=== PATIENT | female | born 2000 | race Caucasian/White ===

== ENCOUNTER 2020-08-23 18:34 | Inpatient (IN) | payer OTHER ==
[2020-08-23] MEDS ORDERED: Ondansetron PF 4 MG/2 ML Vial ONE (20:00)
[2020-08-23] MEDS ORDERED: Morphine 4 MG/ML VIAL ONE (20:00)
[2020-08-23] MEDS ORDERED: Boostrix 0.5 ML (Tdap) VIAL ONE (20:01)
[2020-08-23] MEDS ORDERED: Ketorolac Tromethamine 15 MG/ML VIAL ONE (20:01)
[2020-08-23 20:15] LABS: #Basophils 0.1 10x3/uL (0.0-0.2); #Neutrophils 8.9 10x3/uL (1.5-8.4); %Basophils 0.6 % (0.0-2.0); %Eosinophils 0.2 % (0.0-6.0); %Lymphocytes 17.1 % (18.0-47.0); %Neutrophils 73.5 % (40.0-75.0); Hemoglobin 13.6 g/dL (12.0-15.5); Mean Corpuscular Hemoglobin 29.1 pg (27.0-33.0); Mean Platelet Volume 11.5 fl (7.4-10.4); Platelet Count 263 10x3/uL (150-450); RBC Distribution Width 12.3 % (11.5-14.5); Red Blood Cell (RBC) Count 4.67 10x6/uL (3.90-5.03); White Blood Cell (WBC) Count 12.1 10x3/uL (3.5-10.5)
[2020-08-23 20:28] LABS: ALT (SGPT) 10 U/L (8-55); AST (SGOT) 14 U/L (5-34); Albumin 4.4 g/dL (3.5-5.0); Alkaline Phosphatase 63 U/L (40-110); Anion Gap 15 mmol/L (10-20); BUN (Urea Nitrogen) 11 mg/dL (7.0-18.7); Bilirubin, Total 0.4 mg/dL (0.2-1.2); Calc. Creatinine Clearance 0 mL/min (70-130); Calcium 9.5 mg/dL (7.8-10.44); Carbon Dioxide 26 mmol/L (22-29); Chloride 102 mmol/L (98-107); Globulin 3.2 g/dL (2.4-3.5); Glucose 95 mg/dL (70-105); Potassium 4.4 mmol/L (3.5-5.1); Protein, Total 7.6 g/dL (6.0-8.3); Sodium 139 mmol/L (136-145)
[2020-08-23] MEDS ORDERED: Morphine 4 MG/ML VIAL SLOW IVP PRN (21:21)
[2020-08-23] MEDS ORDERED: Ondansetron ODT 4 MG TAB PO PRN (21:21)
[2020-08-23] MEDS ORDERED: Ondansetron PF 4 MG/2 ML Vial IVP PRN (21:21)
[2020-08-23] MEDS ORDERED: Acetaminophen 325 MG TAB PO PRN (21:21)
[2020-08-23] MEDS ORDERED: Ampicillin/Sulbactam 1.5 GM VIAL ONE (21:26)
[2020-08-23] MEDS ORDERED: Vancomycin HCl 500 MG in Sodium Chloride 0.9% 100 ML IVPB SCH (21:30)
[2020-08-23] MEDS ORDERED: Vancomycin HCl 500 MG VIAL ONE (21:50)
[2020-08-23] MEDS ORDERED: Ampicillin/Sulbactam 3 GM VIAL ONE (21:59)
[2020-08-23] MEDS ORDERED: Piperacillin/Tazobactam 3.375 GM in Sodium Chloride 0.9% 100 ML IVPB SCH (23:59)
[2020-08-24] MEDS ORDERED: HYDROcodone/Acetaminophen 7.5/325 mg Tablet ONE (03:24)
[2020-08-24] MEDS: HYDROcodone/Acetaminophen 7.5/325 mg Tablet PO PRN ×3 (03:27→12:13)
[2020-08-24 04:23] LABS: #Basophils 0.1 10x3/uL (0.0-0.2); #Neutrophils 7.2 10x3/uL (1.5-8.4); %Basophils 0.5 % (0.0-2.0); %Eosinophils 0.4 % (0.0-6.0); %Lymphocytes 22.3 % (18.0-47.0); %Monocytes 9.5 % (0.0-10.0); %Neutrophils 66.9 % (40.0-75.0); Hemoglobin 12.3 g/dL (12.0-15.5); Mean Corpuscular HGB CONC 32.6 g/dL (32.0-36.0); Mean Platelet Volume 11.9 fl (7.4-10.4); Platelet Count 229 10x3/uL (150-450); RBC Distribution Width 12.1 % (11.5-14.5); White Blood Cell (WBC) Count 10.7 10x3/uL (3.5-10.5)
[2020-08-24 04:38] LABS: Anion Gap 15 mmol/L (10-20); BUN (Urea Nitrogen) 10 mg/dL (7.0-18.7); Calc. Creatinine Clearance 0 mL/min (70-130); Carbon Dioxide 20 mmol/L (22-29); Chloride 109 mmol/L (98-107); Glucose 84 mg/dL (70-105); Sodium 140 mmol/L (136-145)
[2020-08-24 04:39] LABS: Calcium 8.4 mg/dL (7.8-10.44); Magnesium 1.8 mg/dL (1.6-2.6)
[2020-08-24] MEDS: Ampicillin/Sulbactam 3 GM in Sodium Chloride 0.9% 100 ML IVPB SCH ×3 (05:27→18:33)
[2020-08-24] MEDS: Vancomycin HCl 1 GM in Sodium Chloride 0.9% 250 ML 250 ML IVPB SCH ×2 (08:24→22:03)
[2020-08-24] MEDS: Enoxaparin Sodium 40 MG/0.4 ML SYRINGE SC SCH (08:24)
[2020-08-24] MEDS: Cetirizine HCl 10 MG TAB PO SCH (12:15)
[2020-08-24 12:19] VITALS: BMI 22.1
[2020-08-24 16:41] LABS: SARS-CoV-2 PCR by NAA Not Detected (NotDetected)
[2020-08-25] MEDS: Ampicillin/Sulbactam 3 GM in Sodium Chloride 0.9% 100 ML IVPB SCH ×5 (01:24→23:25)
[2020-08-25 05:03] LABS: #Basophils 0.1 10x3/uL (0.0-0.2); #Eosinphils 0.1 10x3/uL (0.0-0.5); #Monocytes 0.6 10x3/uL (0.0-1.1); #Neutrophils 4.7 10x3/uL (1.5-8.4); %Basophils 0.9 % (0.0-2.0); %Eosinophils 1.2 % (0.0-6.0); %Lymphocytes 26.3 % (18.0-47.0); %Monocytes 8.5 % (0.0-10.0); %Neutrophils 62.8 % (40.0-75.0); Hemoglobin 12.7 g/dL (12.0-15.5); Mean Corpuscular HGB CONC 31.6 g/dL (32.0-36.0); Mean Corpuscular Hemoglobin 29.5 pg (27.0-33.0); Mean Corpuscular Volume 93.3 fl (81.6-98.3); Mean Platelet Volume 10.8 fl (7.4-10.4); Platelet Count 227 10x3/uL (150-450); RBC Distribution Width 11.9 % (11.5-14.5); Red Blood Cell (RBC) Count 4.31 10x6/uL (3.90-5.03); White Blood Cell (WBC) Count 7.5 10x3/uL (3.5-10.5)
[2020-08-25 05:16] LABS: ALT (SGPT) 8 U/L (8-55); AST (SGOT) 11 U/L (5-34); Albumin 3.8 g/dL (3.5-5.0); Alkaline Phosphatase 53 U/L (40-110); Anion Gap 13 mmol/L (10-20); BUN (Urea Nitrogen) 8 mg/dL (7.0-18.7); Bilirubin, Total 0.5 mg/dL (0.2-1.2); CRP (Inflammatory) 2.08 mg/dL (= or < 0.5); Calc. Creatinine Clearance 110 mL/min (70-130); Calcium 8.8 mg/dL (7.8-10.44); Carbon Dioxide 24 mmol/L (22-29); Chloride 107 mmol/L (98-107); Globulin 2.6 g/dL (2.4-3.5); Glucose 90 mg/dL (70-105); Potassium 4.4 mmol/L (3.5-5.1); Protein, Total 6.4 g/dL (6.0-8.3); Sodium 140 mmol/L (136-145)
[2020-08-25] MEDS: Vancomycin HCl 1 GM in Sodium Chloride 0.9% 250 ML 250 ML IVPB SCH ×2 (08:34→20:24)
[2020-08-25] MEDS: Cetirizine HCl 10 MG TAB PO SCH (08:35)
[2020-08-25] MEDS: Enoxaparin Sodium 40 MG/0.4 ML SYRINGE SC SCH (08:35)
[2020-08-26] MEDS: Ampicillin/Sulbactam 3 GM in Sodium Chloride 0.9% 100 ML IVPB SCH ×2 (05:08→12:34)
[2020-08-26] MEDS ORDERED: Sodium Chloride 0.9% 250 ML 250 ML ONE (08:59)
[2020-08-26] MEDS: Vancomycin HCl 1 GM in Sodium Chloride 0.9% 250 ML 250 ML IVPB SCH (09:10)
[2020-08-26] MEDS: Cetirizine HCl 10 MG TAB PO SCH (09:12)
[2020-08-26] MEDS: Enoxaparin Sodium 40 MG/0.4 ML SYRINGE SC SCH (09:12)
[2020-08-26 12:31] VITALS: BP 108/71; TEMP 98.7
[2020-08-27] MEDS ORDERED: Loratadine 10 MG TAB PO SCH (09:00)
== END 2020-08-26 15:22 | disposition home or self-care (01) | DRG 872 ==
LOC: CSHERS 18:34 → UNDOADMIN 08-24 01:07 → CSHERHOLD 08-24 01:07 → CSHTELE 08-24 07:39 → CSHERHOLD 08-25 10:54
PROVIDERS: ADMIT Family Medicine; ATTEND Internal Medicine
DX: A41.9 Sepsis, unspecified organism (principal); L03.113 Cellulitis of right upper limb; L03.114 Cellulitis of left upper limb; Z20.822 Contact with and (suspected) exposure to COVID-19; S61.451A Open bite of right hand, initial encounter; W55.01XA Bitten by cat, initial encounter; J45.909 Unspecified asthma, uncomplicated; J30.2 Other seasonal allergic rhinitis; Z83.3 Family history of diabetes mellitus; Z82.49 Family history of ischemic heart disease and other diseases of the circulatory system
CPT/HCPCS: 36415; 80048; 80053; 83605; 83735; 85025; 85652; 86140; 87040; 87635; 90471; 90715; 96365; 96366; 96375; J0295; J1885; J2270; J2405; J3370; J3490; J7050; U0003; U0005